=== PATIENT | female | born 2000 | race Caucasian/White ===

== ENCOUNTER 2023-06-26 15:52 | Outpatient (CLI) | payer OTHER, SELFPAY | END 2023-06-26 15:53 | disposition home or self-care (01) | PROVIDERS: PCP Family Medicine; Visit Provider Obstetrics & Gynecology | DX: R53.83 Other fatigue (principal); E03.9 Hypothyroidism, unspecified; E66.01 Morbid (severe) obesity due to excess calories; R73.03 Prediabetes; Z79.899 Other long term (current) drug therapy | CPT/HCPCS: 80048; 80061; 80076; 84403; 84439; 84443 ==

== ENCOUNTER 2023-09-19 15:15 | Outpatient (CLI) | payer OTHER, SELFPAY | END 2023-09-19 15:16 | disposition home or self-care (01) | LOC: NFLDREF 09-22 22:16 | PROVIDERS: PCP Family Medicine; Referring Provider Family Medicine; Visit Provider Obstetrics & Gynecology | DX: Z79.899 Other long term (current) drug therapy (principal); E03.9 Hypothyroidism, unspecified | CPT/HCPCS: 84403; 84439; 84443; 86376 ==